=== PATIENT | female | born 1945 | race Native Hawaiian/Other Pacific Islander ===

== ENCOUNTER 2020-09-21 09:47 | Outpatient (CLI) | payer OTHER | END 2020-09-21 19:05 | disposition home or self-care (01) | LOC: RESP 09:47 | PROVIDERS: ATTEND Specialist | DX: G40.309 Generalized idiopathic epilepsy and epileptic syndromes, not intractable, without status epilepticus (principal); D32.9 Benign neoplasm of meninges, unspecified ==